=== PATIENT | female | born 1975 | race Hispanic/Latino ===

== ENCOUNTER 2020-08-25 14:36 | Observation (INO) | payer BC, OTHER ==
[2020-08-25] MEDS ORDERED: propofoL 200 MG/20 ML VIAL IV ONE (15:26)
[2020-08-25] MEDS ORDERED: LIDOCAINE 1% MPF 5 ML VIAL ONE (15:26)
[2020-08-25] MEDS ORDERED: ROCURONIUM 50 MG/5 ML VIAL IV ONE (15:26)
[2020-08-25] MEDS ORDERED: FENTANYL CITR 100 MCG/2 ML ONE ×3 (15:27→18:25)
[2020-08-25] MEDS ORDERED: Ringers Lactate 1,000 ML IV ONE (15:43)
--- NOTE | 2020-08-25 16:06 | P.HP ---
Date of Service: 08/25/20 PC: This 45-year-old female presents to an outpatient ER with right lower quadrant abdominal pain for diagnosis and treatment. HPC: Patient apparently has been having abdominal pain since Saturday. Began shortly after she ate. Was located in the upper portion of her abdomen, but over the last day or so has localized to the right lower quadrant. Hurts when she tries to lift or bend PMH: 5 para 5 PSHx: Negative SOC: No known allergies has not on any medications SYS REVIEW: No cough, wheeze, shortness of breath. No chest pain or palpitations. Denies any urinary complaints O/E awake alert vital signs are stable HEENT: Nonicteric Chest: Air entry equal bilateral ABD: Tender in the right lower quadrant LOCO: Intact DATA: Has acute appendicitis on CT scan IMPRESSION: Acute abdomen with appendicitis PLAN: I will take her to the operating room for laparoscopic possible open appendectomy. The risks of this procedure have been discussed. The possibility of bleeding, infection, injury to bile ducts blood vessels intestines has been described. The possible need for an open and/or further surgeries and procedures was discussed. She understands and wants to proceed.
[2020-08-25] MEDS ORDERED: dexAMETHasone 10 MG/ML VIAL ONE (16:43)
[2020-08-25] MEDS ORDERED: KETOROLAC 30 MG/ML INJ ONE (16:44)
[2020-08-25] MEDS ORDERED: ONDANSETRON 4 MG/2 ML VIAL ONE (16:44)
[2020-08-25] MEDS ORDERED: NEOSTIGMINE 1 MG/ML -5 ML ONE (16:59)
[2020-08-25] MEDS ORDERED: GLYCOPYRROLATE 0.2 MG/ML SYR ONE (16:59)
--- NOTE | 2020-08-25 17:35 | P.OP ---
Preoperative diagnosis: Acute abdomen Postoperative diagnosis: Acute appendicitis Primary procedure: Laparoscopic appendectomy Anesthesia: General Estimated blood loss: Less than 10 cc Specimen: 1 appendix Operative Technique: The patient brought the operating room placed supine on the table. After the induction of adequate general endotracheal anesthesia, the area of the abdomen was prepped with a DuraPrep solution, and she was draped in usual aseptic manner. A subumbilical incision was made. This was brought down through the skin and subcutaneous tissue. The Visiport was now used to enter the peritoneal cavity and created pneumoperitoneum to approximately 12 mm of mercury. Under direct vision a 5 mm trocar was placed in the right upper quadrant. Attention was turned down towards the pelvis. There were some adhesions from her previous C- sections as well as the uterus adherent to the midline went approximately 4 fingers breath below the emboli kiss well we placed our lower midline trocar. We were now able to visualize the right lower quadrant. The patient was placed in Trendelenburg and rolled to the left. Could visualize right upper quadrant. Could see that there was inflammatory process in the area just above the true pelvis. Gentle dissection lattice to take parts of the distal ileum which were adherent to this area. These came down quite easily. We were able to gently dissect into that portion where we found another layer of the ileum over an inflammatory process. Once again it was picked off and we discover the true appendix. It was a markedly adherent to the sidewall of the true pelvis. The ovary was in his close vicinity. The tip of the appendix was gently dissected out of this area of inflammation. We were able to trace the appendix back towards the cecum. The cecum was now identified. We were able to elevate up the vasculature of the appendix. Gentle dissection lattice expose the main vessels. Using a linear Stapler with with a vascular load we came across the blood supply to the appendix. This allowed us to identify the junction of the appendix with the cecum. An opening was made into the mesentery in this area. Using a linear Stapler we will increase placed across the base of the appendix and fired. The appendix now having been detached was placed into an Endo-Catch and brought out through the umbilical trocar site. Attention was turned back towards the right lower quadrant. Once again we inspected the area to ensure adequate hemostasis. Small blood blood clots were extracted using the suction device. The abdomen was inspected to assure adequate hemostasis. This having mean down the umbilical I kiss was approximated using 2 sutures placed using the Endo Close. The suit the patient was returned to the neutral position on the OR table. The pneumoperitoneum was now collapsed, the sutures tied, and the trocars removed. [place] were applied to the skin. At the end of procedure she was stable when sent to the recovery room. Needle sponge instrument count were correct. No drains were placed. Complications: None Transferred to: Recovery Room Condition: Good
[2020-08-25 18:42] VITALS: BMI 39.6
[2020-08-25] MEDS: Ringers Lactate 1,000 ML IV SCH (18:48)
[2020-08-25] MEDS: MORPHINE 4 MG/ML SYR IV PRN (18:48)
[2020-08-25] MEDS: HYDROCODONE/APAP 7.5/325 MG TAB PO PRN (21:14)
[2020-08-26] MEDS: PIPER/TAZO/NS 3.375gm 3.375 GM/100 ML BAG IVPB SCH ×2 (00:27→08:11)
[2020-08-26] MEDS: Ringers Lactate 1,000 ML IV SCH (04:56)
[2020-08-26] MEDS: HYDROCODONE/APAP 7.5/325 MG TAB PO PRN ×2 (04:56→12:23)
[2020-08-26] MEDS: MORPHINE 4 MG/ML SYR IV PRN (08:18)
[2020-08-26 08:27] VITALS: O2SAT 97
[2020-08-26] MEDS ORDERED: ONDANSETRON 4 MG/2 ML VIAL IV PRN (08:52)
[2020-08-26 09:30] VITALS: BP 126/75; TEMP 97.1
== END 2020-08-26 12:31 | disposition home or self-care (01) ==
LOC: 2ND 14:36
PROVIDERS: ADMIT Surgery; ATTEND Surgery
PROC: 0DTJ4ZZ Resection of Appendix, Percutaneous Endoscopic Approach (ICD-10-PCS; principal; 2020-08-25 15:15)
DX: K35.80 Unspecified acute appendicitis (principal)
CPT/HCPCS: 88304; 44970; J2704; J3010 ×3; J2543; J1100; J2710; J7120 ×3; J2405 ×2; G0378 ×3

== ENCOUNTER 2024-04-08 21:56 | Inpatient (IN) | payer OTHER ==
[2024-04-08 22:16] VITALS: BMI 40.2
--- NOTE | 2024-04-08 22:58 | P.HP ---
Certification for Inpatient Patient admitted to: Observation With expected LOS: <2 Midnights Practitioner: I am a practitioner with admitting privileges, knowledge of patient current condition, hospital course, and medical plan of care. Services: Services provided to patient in accordance with Admission requirements found in Title 42 Section 412.3 of the Code of Federal Regulations Patient History Date of Service: 04/08/24 Reason for admission: Abdominal Pain History of Present Illness: 49 yo female with past medical history of Hypertension who started having abdominal pain at 3 AM this morning. Pain is sharp 8 out of 10 in severity located in the right upper quadrant with no radiation associated with some nausea and vomiting but no diarrhea. Patient was also seen outside ER and had a workup which was consistent with acute cholecystitis and was sent over here for further management and surgical consult. Patient denies any fever or chills Denies any chest pain or shortness of breath Allergies No Known Allergies Allergy (Verified 08/25/20 17:46) Home medications list reviewed: Yes Home Medications: Losartan Potassium [Cozaar] 25 mg PO DAILY 04/08/24 - Past Medical/Surgical History Has patient received pneumonia vaccine in the past: No Diabetic: No Past Medical History: Reviewed- Non-Contributory -: hypertension Past Surgical History: Reviewed- Non-Contributory -: c section - Family History Family History: Reviewed- Non-Contributory - Social History Smoking Status: Never smoker Alcohol use: No CD- Drugs: No Caffeine use: Yes Place of Residence: Home Review of Systems 10-point ROS is otherwise unremarkable Physical Examination - Vital Signs Temperature: 98.7 F Blood Pressure: 126/76 Pulse: 76 Respirations: 18 Pulse Ox (%): 94 - Physical Exam General: Alert, Oriented x3 HEENT: Atraumatic, Normocephalic Neck: Supple Respiratory: Clear to auscultation bilaterally, Normal air movement Cardiovascular: Regular rate/rhythm, Normal S1 S2 Capillary refill: <2 Seconds Gastrointestinal: Soft and benign, W/out hepatosplenomegaly Musculoskeletal: No clubbing, No swelling Integumentary: No rashes Neurological: Normal speech, Normal strength at 5/5 x4 extr, Cranial nerves 3-12 intact, Normal reflexes 2+ Lymphatics: No axilla or inguinal lymphadenopathy Assessment and Plan - Plan Acute Cholecystitis Pain Control IV antibiotics Surgery Consult Zofran PRN IV fluids NPO GI/DVT Prophylaxis Advance Directive Full Code Discharge Plan: Home Plan to discharge in: 48 Hours - Advance Directives Does patient have a Living Will: No Does patient have a Durable POA for Healthcare: No - Code Status/Comfort Care Code Status: Full Code Time Spent Managing Pts Care (In Minutes): 48
[2024-04-08] MEDS: HYDROCODONE/APAP 5/325 MG TAB PO PRN (23:29)
[2024-04-08] MEDS: ONDANSETRON 4 MG/2 ML VIAL IV PRN (23:29)
[2024-04-08] MEDS: NA CHLORIDE 0.9% 1,000 ML IV SCH (23:30)
[2024-04-08] MEDS: MORPHINE 2 MG/ML SYR IV PRN (23:30)
[2024-04-08] MEDS: CEFTAZIDIME 1 GM VIAL IV SCH (23:56)
[2024-04-08] MEDS: NA CHLORIDE 0.9% 100 ML ONE (23:56)
[2024-04-09 04:56] LABS: Sqamous Epithelial 20-50 /HPF (None Seen); Urine Bacteria 20-50 /HPF (<20); Urine Bilirubin NEGATIVE (Negative); Urine Blood Negative (Negative); Urine Clarity Clear (Clear); Urine Color Yellow (Yellow); Urine Culture Reflex Order NOT NEEDED; Urine Glucose NEGATIVE (Negative); Urine Ketones NEGATIVE (Negative); Urine Microscopic Reflex YN ORDER UMIC; Urine Mucus 2+ /HPF (None Seen); Urine Nitrite NEGATIVE (Negative); Urine Protein 1+ (Negative); Urine RBC <5 /HPF (None Seen); Urine Urobilinogen Normal (Normal); Urine WBC <5 /HPF (<5)
[2024-04-09 04:59] LABS: Specific Gravity > 1.030 (1.005-1.030)
[2024-04-09 06:39] LABS: Absolute Eosinophils 0.1 K/uL (0-0.5); Absolute Lymphocytes (CBC) 1.5 K/uL (0.7-4.9); Absolute Monocytes 1.1 K/uL (0.1-1.3); Basophils % 0.3 % (0-1.3); Eosinophils % 0.5 % (0-4.4); Hematocrit 38.6 % (36.0-45.0); Hemoglobin 13.4 g/dL (12.0-15.0); Lymphocytes % 11.3 % (15.3-44.8); MCH 30.8 pg (27.0-35.0); MCHC 34.6 g/dL (32.0-36.0); MCV 89.2 fL (80-100); MPV 11.2 fL (7.6-11.3); Monocytes % 8.2 % (3.3-12.3); Neutrophils % 79.7 % (41.7-73.7); Platelets 188 thou/uL (152-406); RBC Red Blood Cell Count 4.34 M/uL (3.86-4.86); Red Cell Distribution Width 12.8 % (12.1-15.2)
[2024-04-09 07:00] LABS: Albumin 3.3 g/dL (3.4-5.0); Albumin/Globulin Ratio 0.9 (1.1-1.8); Anion Gap 6.2 mEq/L (5.0-15.0); Bilirubin Total 0.6 mg/dL (0.2-1.0); Globulin 3.6 g/dL (2.3-3.5); Potassium 4.2 mEq/L (3.5-5.1); Protein, Total 6.9 g/dL (6.4-8.2)
[2024-04-09] MEDS: FLU (Fluarix Triv) TS24-25(6MOS UP)/PF 45 MCG/0.5 ML Syringe IM ONE (07:45)
[2024-04-09 08:22] LABS: PT Prothrombin Time 12.8 SECONDS (9.4-12.5); Protime INR 1.22
[2024-04-09] MEDS: CEFTAZIDIME 1 GM in NA CHLORIDE 0.9% 100 ML IV SCH (09:08)
[2024-04-09] MEDS: ACETAMINOPHEN 325 MG TABLET PO PRN (13:13)
[2024-04-09] MEDS: Ringers Lactate 1,000 ML IV ONE (13:44)
--- NOTE | 2024-04-09 14:09 | P.HP ---
Date of Service: 04/09/24 PC: This patient presented to another facility with severe right upper quadrant abdominal pain which revealed she had acute on chronic cholecystitis with cholelithiasis. She was transferred to our facility for surgical treatment. HPC: Patient has been experiencing right upper quadrant abdominal pain radiating to her back for the last few months. Last night's episode was straight in the middle going up into her chest. She has been having this off and on for the last few years. PSHx: Previous laparoscopic appendectomy PMHx: Hypertension, she is not diabetic. Social Hx: No known allergies Sys R: No cough, wheeze, shortness of breath. No chest pain or palpitations. No urinary complaints. O/E: Awake alert vital signs are stable HEENT: Within normal limits Chest: Air entry equal bilaterally Abd: Mildly tender in the right upper quadrant [place]: Intact Data: Has documented gallstones Impression: This patient has acute on chronic cholecystitis with cholelithiasis. Plan: I will taken to the operating room for laparoscopic possible open cholecystectomy with a cholangiogram. The risks of this procedure have been discussed. The possibility of bleeding, infection, injury to bile ducts blood vessels and intestines have been described. The possible need for an open and/or further surgeries and procedures was discussed. She understands and wants us to proceed.
[2024-04-09] MEDS ORDERED: MIDAZOLAM HCL 2 MG/2 ML INJ ONE (14:10)
[2024-04-09] MEDS ORDERED: ONDANSETRON 4 MG/2 ML VIAL ONE (14:10)
[2024-04-09] MEDS ORDERED: propofoL 200 MG/20 ML VIAL IV ONE ×2 (14:10→16:15)
[2024-04-09] MEDS ORDERED: LIDOCAINE 2% MPF 5 ML VIAL ONE (14:10)
[2024-04-09] MEDS ORDERED: ROCURONIUM 50 MG/5 ML VIAL IV ONE (14:11)
[2024-04-09] MEDS ORDERED: FENTANYL CITR 100 MCG/2 ML ONE (14:11)
[2024-04-09] MEDS: ROCURONIUM 50 MG/5 ML VIAL IV ONE (15:06)
[2024-04-09] MEDS ORDERED: GLYCOPYRROLATE 0.2 MG/ML SYR ONE (15:36)
[2024-04-09] MEDS ORDERED: dexAMETHasone 10 MG/ML VIAL ONE (15:41)
[2024-04-09] MEDS ORDERED: SUCCINYLCHOLINE 20 MG/ML (10 ML) IV ONE (15:48)
[2024-04-09] MEDS ORDERED: SUGAMMADEX SODIUM 200 MG/2 ML VIAL IV ONE (15:48)
[2024-04-09] MEDS ORDERED: KETOROLAC 30 MG/ML INJ ONE (15:55)
--- NOTE | 2024-04-09 16:15 | P.OP ---
Preoperative diagnosis: Acute on chronic cholecystitis with cholelithiasis Postoperative diagnosis: the same Primary procedure: Laparoscopic cholecystectomy Secondary procedure: Cholangiogram under fluoroscopy Anesthesia: General Specimen: 1 gallbladder and contents Operative Technique: The patient brought the operating room and placed supine on the table. After the induction of adequate general endotracheal anesthesia, the area of the abdomen was prepped with a DuraPrep solution, and she was draped in the usual aseptic manner. Attention was turned towards the umbilicus. A subumbilical incision was made after injecting with 0.25% Marcaine. The Visiport was now used to enter the peritoneal cavity and created pneumoperitoneum to approximately 12 mmHg. The patient was then placed in reverse Trendelenburg and airplane to the left. We could visualize the right upper quadrant. A swollen and edematous gallbladder was noted. A 5 mm trocar was placed in the upper midline another in the 2 on the right side of the abdomen. We were now able to attempt to grasp the gallbladder. It was only markedly distended with quite amount of edema in the wall and under the serosal surface. The contents of the gallbladder were now aspirated. At this point we could now place the grasper on the fundus of the gallbladder. Applying lateral traction another grasper was placed down by Alvarado's pouch. Gentle dissection of this edematous area allowed us to expose both the cystic duct and the artery. A clip was placed between the gallbladder and the cystic duct. An opening was made into the cystic duct through which were able to pass our cholangiocatheter. Using fluoroscopy we were able to inject our contrast material demonstrating good flow of contrast into the duodenum. We had advanced our balloon into the common bile duct so after pulling it back a pressure injection showed the upper radicles nicely with no evidence of filling defects. The catheter was then removed. Clips were placed on the distal portion of the cystic duct. The cystic duct and artery were now fully transected. The gallbladder was then dissected free from the liver bed, placed into an Endo Catch, and brought out through the umbilical trocar site. Attention was turned back up towards right upper quadrant. The gallbladder fossa was inspected to ensure adequate hemostasis. The irrigating fluid was aspirated from the peritoneal cavity. Attention was now turned back towards the umbilicus. This patient has had a previous tummy tuck as well as a previous appendectomy through this entry site. 2 sutures of absorbable material were used to approximate the fascial defects. We could also see that she had had some incarcerated hernias along that way these were pulled down using the graspers. It was interesting to note that she does have adhesions of her uterus to the lower portion of her of her operative scar. At the end of the procedure the pneumoperitoneum was collapsed, the sutures tied, and elizabeth applied to the skin. At the end of the procedure she was stable and sent to the recovery room. Needle sponge instrument count were correct. No drains were placed. Complications: None Transferred to: Recovery Room Condition: Good
[2024-04-09 17:07] VITALS: O2SAT 95
[2024-04-09] MEDS: PIPER TAZO 3.375 GM in NA CHLORIDE 0.9% 100 ML IV SCH (17:22)
--- NOTE | 2024-04-09 18:24 | RAD REPORT ---
EXAM: Fluoroscopy use, Cholangiogram Oper-Xray Or HISTORY: [facility] LAP AJ W/ IOC COMPARISON: None FINDINGS: A total of 9 images were sent to PACS, during a fluoroscopically guided intraoperative chol angiography. No radiologist was involved in protocoling or performance of the study, and no radiologist was present for the duration of the procedure. No interpretation of the saved images will be provided. Total fluoroscopy time: 0.2 minutes. IMPRESSION: Documentation of fluoroscopy use as above.
[2024-04-10] MEDS: HYDROCODONE/APAP 7.5/325 MG TAB PO PRN (08:06)
[2024-04-10] MEDS: ENOXAPARIN 40 MG/0.4 ML SQ SCH (08:07)
--- NOTE | 2024-04-10 09:40 | P.PN ---
Date of Service: 04/09/24 Subjective 10-point ROS is otherwise unremarkable Physical Examination - Vital Signs reviewed - Physical Exam General: Alert, Oriented x3 Respiratory: Clear to auscultation bilaterally, Normal air movement Cardiovascular: Regular rate/rhythm, Normal S1 S2 Gastrointestinal: Soft and benign, W/out hepatosplenomegaly Musculoskeletal: No clubbing, No swelling Neurological: Normal speech, Normal strength at 5/5 x4 extr, Cranial nerves 3-12 intact, Normal reflexes 2+ Assessment and Plan - Assessment/Plan 1. Acute Cholecystitis Pain Control IV antibiotics Surgery Consult appreciated Zofran PRN IV fluids full liquid GI/DVT Prophylaxis Advance Directive Full Code Discharge Plan: Home Plan to discharge in: 48 Hours - Advance Directives Does patient have a Living Will: No Does patient have a Durable POA for Healthcare: No - Code Status/Comfort Care Code Status: Full Code Time Spent Managing Pts Care (In Minutes): 30
[2024-04-10] MEDS: ACETAMIN/CAFFEINE/BUTALB TAB PO ONE (10:30)
[2024-04-10] MEDS: FLU (Fluarix Triv) TS24-25(6MOS UP)/PF 45 MCG/0.5 ML Syringe IM ONE (10:31)
[2024-04-10 12:19] LABS: Absolute Lymphocytes (CBC) 1.4 K/uL (0.7-4.9); Absolute Neutrophil 11.3 K/uL (1.8-8.0); Basophils % 0.1 % (0-1.3); Hematocrit 35.6 % (36.0-45.0); Hemoglobin 12.4 g/dL (12.0-15.0); Lymphocytes % 10.2 % (15.3-44.8); MCH 31.1 pg (27.0-35.0); MCHC 34.7 g/dL (32.0-36.0); MCV 89.6 fL (80-100); Monocytes % 7.3 % (3.3-12.3); Neutrophils % 82.4 % (41.7-73.7); Platelets 153 thou/uL (152-406); RBC Red Blood Cell Count 3.98 M/uL (3.86-4.86); Red Cell Distribution Width 12.9 % (12.1-15.2)
[2024-04-10 12:42] LABS: Albumin 2.7 g/dL (3.4-5.0); Albumin/Globulin Ratio 0.7 (1.1-1.8); Anion Gap 8.8 mEq/L (5.0-15.0); Bilirubin Total 0.4 mg/dL (0.2-1.0); Globulin 3.8 g/dL (2.3-3.5); Potassium 3.8 mEq/L (3.5-5.1); Protein, Total 6.5 g/dL (6.4-8.2); Thyroid Stimulating Hormone 0.553 uIU/mL (0.358-3.740)
[2024-04-10 12:53] VITALS: BP 122/65; TEMP 97.8
== END 2024-04-10 13:47 | disposition home or self-care (01) | DRG 419 ==
LOC: 4TH 21:56 → OBSVTOIN 04-09 16:00
PROVIDERS: ADMIT Family Medicine; ATTEND Hospitalist
PROC: BF121ZZ Fluoroscopy of Gallbladder using Low Osmolar Contrast (ICD-10-PCS; 2024-04-09)
PROC: 0FT44ZZ Resection of Gallbladder, Percutaneous Endoscopic Approach (ICD-10-PCS; principal; 2024-04-09 13:30)
DX: K80.12 Calculus of gallbladder with acute and chronic cholecystitis without obstruction (principal); I10 Essential (primary) hypertension; Z90.49 Acquired absence of other specified parts of digestive tract; Z79.899 Other long term (current) drug therapy
CPT/HCPCS: 36415; 74300; 80053; 81001; 84439; 84443; 85025; 85610; 88304; 94010; G0378; G0379; J0713; J1100; J1650; J2003; J2250; J2270; J2405; J2543; J2704; J3010; J7030; J7120